=== PATIENT | male | born 1980 | race American Indian/Alaskan Native ===

== ENCOUNTER 2020-12-11 11:51 | Emergency (ER) | payer MEDICAID ==
--- NOTE | 2020-12-11 12:17 | Event Note ---
ED Screening Note Date of service: 12/11/20 Time: 12:15 ED Screening Note: 40-year-old male patient presents emergency department with complaints of progressively worsening sore throat since yesterday. Today, patient noticed that his voice had changed. No known sick contacts. No current steroid or antibiotic use. No recent travel. Tachycardic in triage. General: Awake, appropriately interactive, no acute distress. ENT: Pharyngeal erythema with bilateral tonsillar swelling, right > left. Voice changes noted. Neck: Supple. Full range of motion intact. Cardiovascular: Normal peripheral perfusion. Pulmonary: No respiratory distress. Patient is speaking normally without use of accessory muscles. Skin: No apparent rashes or lesions. Neurological: No facial asymmetry. Speech is clear. Follows commands. Patient is alert and oriented. Musculoskeletal: Moves all four extremities spontaneously with normal range of motion. Psych: Cooperative. Appropriate mood and affect. Initial labs ordered. Choice of imaging study will be deferred to additional ED providers following full history and physical examination. I have greeted and performed a focused rapid initial assessment of this patient. A comprehensive ED assessment and evaluation of the patient, analysis of all test results, and completion of the medical decision-making process will be conducted by additional ED providers. This initial assessment/diagnostic orders/clinical plan/treatment(s) is/are subject to change based on patients health status, clinical progression and re-assessment. Further treatment and workup at subsequent clinical provider's discretion. Patient/guardian urged not to elope from the ED as their condition may be serious if not clinically assessed and managed.
[2020-12-11] MEDS ORDERED: KETOROLAC 30 MG/1 ML INJ IV ONE (12:28)
[2020-12-11] MEDS ORDERED: LIDOCAINE VISCOUS 2% 15 ML ORAL LIQD PO ONE (12:28)
[2020-12-11] MEDS ORDERED: SODIUM CHLORIDE 0.9% 1000 ML 1,000 ML IV ONE (12:28)
[2020-12-11] MEDS ORDERED: cefTRIAXone/NS 1 GM/50 ML 1 GM/50 ML BAG IV ONE (12:31)
--- NOTE | 2020-12-11 12:34 | Emergency Department Report ---
HPI - General Chief Complaint: Sore Throat Time Seen by Provider: 12/11/20 12:20 - HPI HPI: Room 6 The patient is a 40-year-old male present with a chief complaint of sore throat. The patient states he developed pain in his throat since yesterday. Patient states he attempted to treat it by gargling with salt water but it has not helped. Patient admits to subjective fever. Patient has occasional cough productive of yellow mucus. Patient denies any sick contacts. ED Past Medical Hx - Past Medical History Previous Medical History?: Yes Hx Heart Attack/AMI: Yes Additional medical history: Unknown - Surgical History Past Surgical History?: No Additional Surgical History: unknown - Family History Family history: no significant - Social History Smoking Status: Current Every Day Smoker (1/7 pack/day) Substance Use Type: None (Denies illicit drug use), Alcohol (Occasional) - Medications Home Medications: Home Medications Medication Instructions Recorded Confirmed Last Taken Type Amoxicillin/Potassium Clav 1 each PO BID #20 tablet 03/18/18 Unknown Rx [Augmentin 875-125 Tablet] Aspirin 325 mg PO QDAY #30 tablet 03/18/18 Unknown Rx AtorvaSTATin [Lipitor] 40 mg PO QHS #30 tab 03/18/18 Unknown Rx Famotidine [Pepcid] 20 mg PO BID #60 tablet 03/18/18 Unknown Rx amLODIPine 10 mg PO DAILY #30 tablet 03/18/18 Unknown Rx hydrALAZINE [Apresoline TAB] 50 mg PO Q8HR #90 tablet 03/18/18 Unknown Rx ED Review of Systems ROS: Stated complaint: THROAT CLOSING UP CANNOT BREATHE Other details as noted in HPI Constitutional: fever (Subjective) Eyes: denies: eye pain ENT: throat pain Respiratory: cough, shortness of breath Cardiovascular: denies: chest pain Endocrine: no symptoms reported Gastrointestinal: denies: abdominal pain Genitourinary: denies: dysuria Musculoskeletal: denies: back pain Neurological: denies: headache Physical Exam - Physical Exam Vital Signs: Vital Signs 12/11/20 12:01 Temperature 99.1 F Pulse Rate 107 H Respiratory 22 Rate Blood Pressure 157/113 O2 Sat by Pulse 99 Oximetry Vital Signs 12/11/20 12/11/20 12/11/20 12:01 12:31 13:01 Temperature 99.1 F Pulse Rate 107 H 97 H 93 H Respiratory 22 15 18 Rate Blood Pressure 157/113 153/109 151/103 O2 Sat by Pulse 99 97 99 Oximetry 12/11/20 12/11/20 12/11/20 13:31 14:01 14:31 Temperature Pulse Rate 73 79 87 Respiratory 19 17 22 Rate Blood Pressure 156/106 130/85 132/79 O2 Sat by Pulse 98 97 99 Oximetry Physical Exam: GENERAL: The patient is well-developed well-nourished male lying on stretcher appearing to be in moderate discomfort. [] HEENT: Normocephalic. Atraumatic. Extraocular motions are intact. Patient has moist mucous membranes. Right oropharyngeal fullness consistent with peritonsillar abscess. NECK: Supple. No meningitic signs are noted. There is bilateral cervical adenopathy noted. There is no stridor CHEST/LUNGS: Clear to auscultation. There is no respiratory distress noted. HEART/CARDIOVASCULAR: Regular. There is no tachycardia. There is no gallop rub or murmur. ABDOMEN: Abdomen is soft, nontender. Patient has normal bowel sounds. There is no abdominal distention. SKIN: There is no rash. There is no edema. There is no diaphoresis. NEURO: The patient is awake, alert, and oriented. The patient is cooperative. The patient has no focal neurologic deficits. The patient has normal speech MUSCULOSKELETAL: There is no evidence of acute injury. ED Course Vital Signs 12/11/20 12:01 Temperature 99.1 F Pulse Rate 107 H Respiratory 22 Rate Blood Pressure 157/113 O2 Sat by Pulse 99 Oximetry - Consultations Consultation #1: 12/11/20 15:32 [facility] transfer line called Consultation #2: 12/11/20 16:10 [facility] transfer line called 12/11/20 16:13 [facility] on medical diversion Consultation #3: 12/11/20 16:13 [facility] transfer line called 12/11/20 16:52 Case discussed with ENT physician Dr. Johnson-patient should be transferred to [place] ED for admission for IV antibiotics. Will be available for consult ED Medical Decision Making - Lab Data Result diagrams: 12/11/20 13:13 12/11/20 13:13 Laboratory Tests 12/11/20 12/11/20 13:13 13:13 WBC 15.5 H RBC 5.38 H Hgb 15.7 H Hct 48.0 H MCV 89 MCH 29 MCHC 33 RDW 14.9 Plt Count 202 Lymph % (Auto) 7.5 L [place] % (Auto) 15.2 H Eos % (Auto) 0.0 Baso % (Auto) 0.2 Lymph # (Auto) 1.2 [place] # (Auto) 2.4 H Eos # (Auto) 0.0 Baso # (Auto) 0.0 Seg Neutrophils % 77.1 H Seg Neutrophils # 12.0 H Sodium 136 L Potassium 3.9 Chloride 96.6 L Carbon Dioxide 26 Anion Gap 17 BUN 10 Creatinine 0.9 Estimated GFR > 60 BUN/Creatinine Ratio 11 Glucose 100 Calcium 9.3 - Radiology Data Radiology results: report reviewed (CT neck), image reviewed (CT neck) [facility] [address] [place] [address] Cat Scan Report Signed Patient: SRI SIERRA MR#: [id number] : 1980 Acct:[id number] Age/Sex: 40 / M ADM Date: 12/11/20 Loc: ED Attending Dr: Ordering Physician: JESS LANG MD Date of Service: 12/11/20 Procedure(s): CT neck w con Accession Number(s): [id number] cc: JESS LANG MD CT NECK WITH CONTRAST HISTORY: Sore throat and right-sided pharyngeal swelling COMPARISON: None. TECHNIQUE: Routine CT of the neck is performed following intravenous contr ast. All CT scans at this location are performed using CT dose reduction for ALARA by means of automated exposure control. CONTRAST: 100 mL Omnipaque 300 FINDINGS: There is extensive pharyngeal mucosal swelling and hyperenhancement consistent with pharyngitis. On the right, there is a 3.5 x 1.7 cm fluid collection indicative of a tonsillar abscess. There is mild bilateral level 2 cervical adenopathy which is likely reactive. There is no appreciable venous thrombosis in the neck. The visualized lung apices are clear. The thyroid gland appears normal. There are no aggressive appearing bone lesions. Visualized portions of the brain appear normal. IMPRESSION: 1. Severe pharyngitis with a 3.5 cm right tonsillar abscess present. Signer Name: Young Harris MD Signed: 12/11/2020 3:18 PM Workstation Name: [id number] Transcribed By: KANDI Dictated By: Young Harris MD Electronically Authenticated By: Young Harris MD Signed Date/Time: 12/11/201517 DD/ 14 TD/TT: Print Cancel - Differential Diagnosis Peritonsillar abscess, retropharyngeal abscess, pharyngitis Critical care attestation.: If time is entered above; I have spent that time in minutes in the direct care of this critically ill patient, excluding procedure time. ED Disposition Clinical Impression: Tonsillar abscess Disposition: DC/[place]-70 ANOTHER TYPE HLTHCARE Is pt being admited?: No Does the pt Need Aspirin: No Condition: Fair Time of Disposition: 16:54 (Awaiting acceptance)
[2020-12-11 13:53] LABS: Basophils % (Auto) 0.2 % (0.0-1.8); Hemoglobin 15.7 gm/dl (11.8-15.2); Lymphocytes # (Auto) 1.2 K/mm3 (1.2-5.4); Lymphocytes % (Auto) 7.5 % (13.4-35.0); Mean Corpuscular HGB Conc 33 % (32-34); Mean Corpuscular Volume 89 fl (84-94); Monocytes # (Auto) 2.4 K/mm3 (0.0-0.8); Monocytes % (Auto) 15.2 % (0.0-7.3); Platelet Count 202 K/mm3 (140-440); Red Blood Count 5.38 M/mm3 (3.65-5.03); Red Cell Distribution Width 14.9 % (13.2-15.2)
[2020-12-11 14:15] LABS: BUN/Creatinine Ratio 11; Blood Urea Nitrogen 10 mg/dL (9-20); Calcium 9.3 mg/dL (8.4-10.2); Hemolysis Index 18
[2020-12-11] MEDS ORDERED: dexAMETHasone 20 MG/5 ML VIAL IV ONE (15:13)
--- NOTE | 2020-12-11 15:22 | Cat Scan Report ---
CT NECK WITH CONTRAST HISTORY: Sore throat and right-sided pharyngeal swelling COMPARISON: None. TECHNIQUE: Routine CT of the neck is performed following intravenous contrast. All CT scans at this [facility] are performed using CT dose reduction for ALARA by means of automated exposure control. CONTRAST: 100 mL Omnipaque 300 FINDINGS: There is extensive pharyngeal mucosal swelling and hyperenhancement consistent with pharyngitis. On t he right, there is a 3.5 x 1.7 cm fluid collection indicative of a tonsillar abscess. There is mild bilateral level 2 cervical adenopathy which is likely reactive. There is no appreciable venous thrombosis in the neck. The visualized lung apices are clear. The thyroid gland appears normal. There are no aggressive appea ring bone lesions. Visualized portions of the brain appear normal. IMPRESSION: 1. Severe pharyngitis with a 3.5 cm right tonsillar abscess present. Signer Name: Young Harris MD Signed: 12/11/2020 3:18 PM Workstation Name: [id number]
[2020-12-11] MEDS ORDERED: fentaNYL 100 MCG/2 ML INJ IV ONE (16:08)
[2020-12-11] MEDS ORDERED: ONDANSETRON 4 MG/2 ML INJ IV ONE (16:08)
--- NOTE | 2020-12-11 17:12 | Emergency Department Report ---
Blank Doc - Documentation Documentation: Spoke to Dr. Buchanan at [facility] who will be admitting the pa tient to the IMS service.
[2020-12-12 07:33] VITALS: BP 163/110
== END 2020-12-11 22:00 | disposition other institution (70) ==
LOC: ED 11:51
DX: J36 Peritonsillar abscess (principal); I25.2 Old myocardial infarction; F17.200 Nicotine dependence, unspecified, uncomplicated; Z79.899 Other long term (current) drug therapy; Z79.2 Long term (current) use of antibiotics
CPT/HCPCS: 36415; 70491; 80048; 85025; 87040; 96365; 96367; 96375; 99285; J0696; J1100; J1885; J2405; J3010; J7030; Q9967

== ENCOUNTER 2021-02-07 23:05 | Emergency (ER) | payer MEDICAID ==
[2021-02-08 00:35] VITALS: BP 181/127
[2021-02-08] MEDS ORDERED: ASPIRIN 325 MG TAB PO ONE (00:36)
[2021-02-08 01:04] LABS: Basophils % (Auto) 0.6 % (0.0-1.8); Eosinophils % (Auto) 0.5 % (0.0-4.3); Hematocrit 44.6 % (35.5-45.6); Hemoglobin 14.5 gm/dl (11.8-15.2); Lymphocytes % (Auto) 35.2 % (13.4-35.0); Mean Corpuscular HGB Conc 33 % (32-34); Mean Corpuscular Volume 89 fl (84-94); Monocytes # (Auto) 0.7 K/mm3 (0.0-0.8); Monocytes % (Auto) 12.1 % (0.0-7.3); Platelet Count 208 K/mm3 (140-440); Red Blood Count 5.03 M/mm3 (3.65-5.03); Red Cell Distribution Width 15.7 % (13.2-15.2)
[2021-02-08 01:25] LABS: Alanine Aminotransferase 18 units/L (7-56); Albumin 4.2 g/dL (3.9-5); BUN/Creatinine Ratio 10; Blood Urea Nitrogen 8 mg/dL (9-20); Calcium 9.3 mg/dL (8.4-10.2); Hemolysis Index 3
--- NOTE | 2021-02-10 10:29 | Electrocardiograph Report ---
[facility] Test Date: 2021-02-08 Test Time: 00:39:40 Pat Name: SRI SIERRA Department: Room: Gender: M Brake Specialist: DUNG : 1980 Requested By: JESS LANG Order Number: [id number] Reading MD: Thomas Pedro Measurements Intervals [place] Rate: 88 P: 74 IN: 120 QRS: 89 QRSD: 85 T: 64 QT: 377 QTc: 456 Interpretive Statements Sinus rhythm Biatrial enlargement Probable left ventricular hypertrophy ST elev, probable normal early repol pattern No previous ECG available for comparison Electronically Signed On 02-10-2021 10:29:40 EDT by Thomas Pedro
--- NOTE | 2021-02-14 07:10 | XRay Report ---
CHEST 2 VIEWS INDICATION / CLINICAL INFORMATION: chest pain. COMPARISON: 03/13/18 FINDINGS: SUPPORT DEVICES: None. HEART / MEDIASTINUM: No significant abnormality. LUNGS / PLEURA: No significant pulmonary or pleural abnormality. No pneumothorax. ADDITIONAL FINDINGS: No significant additional findings. IMPRESSION: 1. No acute findings. Signer Name: Tian Tan MD Signed: 02/14/2021 7:05 AM Workstation Name: [id number]
== END 2021-02-08 13:00 | disposition left against medical advice (07) ==
LOC: ED 23:05
DX: I10 Essential (primary) hypertension (principal); Z53.21 Procedure and treatment not carried out due to patient leaving prior to being seen by health care provider
CPT/HCPCS: 36415; 71046; 80053; 84484; 85025; 93005